=== PATIENT | female | born 1970 | race Caucasian/White ===

== ENCOUNTER → 2020-07-30 | Outpatient (CLI) | payer OTHER ==
--- NOTE | 2020-07-30 15:00 | RAD ---
Right knee 2 views. HISTORY: Right knee pain 2 views the right knee show no evidence of an acute fracture. There is a joint effusion. IMPRESSION: 1. No fracture or acute osseous normality. 2. Moderate joint effusion. Electronically signed by: Rigo Carmona MD (07/30/2020 2:57 PM) [facility]
== END ==
LOC: PMG 14:34
PROVIDERS: ATTEND Physician Assistant
DX: M25.461 Effusion, right knee (principal)
CPT/HCPCS: 73560